=== PATIENT | female | born 1990 | race Caucasian/White ===

== ENCOUNTER 2022-04-20 08:06 | Day surgery (SDC) | payer MEDICAID ==
[~2022-04-20] VITALS: Ht 167.6 cm; Wt 79.8 kg
[2022-04-20 08:42] LABS: HCG,QUAL RESULT NEGATIVE (NEGATIVE)
[2022-04-20] MEDS ORDERED: MEPERIDINE 50 MG/ML VIAL ONE (09:30)
[2022-04-20] MEDS ORDERED: MIDAZOLAM HCL 5 MG/5 ML VIAL ONE ×2 (09:34→10:03)
[2022-04-20 16:50] VITALS: BP_SYST 120
== END 2022-04-20 12:10 | disposition home or self-care (01) ==
LOC: SDS 08:06 → SMU 08:07 → SDS 12:10
PROVIDERS: ATTEND Internal Medicine Gastroenterology
DX: R19.7 Diarrhea, unspecified (principal); R19.4 Change in bowel habit; K57.30 Diverticulosis of large intestine without perforation or abscess without bleeding; K64.8 Other hemorrhoids; Z79.899 Other long term (current) drug therapy; Z20.822 Contact with and (suspected) exposure to COVID-19
CPT/HCPCS: 45380; 87426; 84703; 36415; 88305; 99152; G0378; J2250; J2175